=== PATIENT | male | born 1980 | race Hispanic/Latino ===

== ENCOUNTER 2016-06-21 19:43 | Emergency (ER) | payer SELFPAY ==
[~2016-06-21] VITALS: Ht 170.2 cm; Wt 100.0 kg
[2016-06-21 19:45] VITALS: BP 152/73; PULSE 100; RESP 18; O2SAT 100
[2016-06-21 20:43] VITALS: BP 146/77; PULSE 98; RESP 22; O2SAT 100
--- NOTE | 2016-06-21 21:16 | ED.REPORT ---
HPI-General Illness Date of Service Jun 21, 2016 ED Provider: Doug Thorpe MD A 35 year old male presents to the ED via after an adverse reaction to a drug. Patient states that one of his friends gave him "a vapor" at 1830 because he was feeling anxious. He is unsure what substance was given. Associated symptoms included chest pain, SOB and numbness and tingling in his extremities. Patient states that he felt as if he was "going to " and "blacked out" for a short period of time. He states that he has returned to his baseline. Patient denies any other medical complaints at this time. Nursing Notes Stated Complaint: AGITATION Chief Complaint: General Complaint Nursing Notes Reviewed: Yes Allergies: Coded Allergies: No Known Allergies (Unverified , 06/21/16) No Active Prescriptions or Reported Meds General Time Seen by MD: 20:50 Chief Complaint Other (Adverse reaction to drug) Hx Obtained From: Patient Arrived By: Ambulance Sudden in Onset?: Yes Onset Occurred: 1 - 4 hours ago (1829) Context of Onset: Other (Unknown drug use) Symptom Duration: Since onset Associated with: Reports: Chest pain, Difficulty breathing, Dizziness, Loss of consciousness ("blackout"), Nausea, Shortness of breath Pertinent Negative: Pt denies other symptoms Recent Healthcare: No recent doctor visit, No recent hospitalization Past Medical History Past Medical History None reported. Past Surgical History None reported. Smoking History Unknown if Ever Smoker Social History Alcohol Use: "Social" Drug Use: THC Other Social History: Local resident Ambulatory Status Independent Review of Systems Full Review of Systems Constitutional: Denies: Chills, Fever Respiratory: Reports: Shortness of breath Cardiovascular: Reports: Chest pain GI: Denies: Abdominal pain, Nausea, Vomiting Neurologic: Reports: Change LOC Complete sys rev & neg: except as marked. Physical Exam Vital Signs Vital Signs Date Time Temp Pulse Resp B/P Pulse Ox O2 Delivery O2 Flow Rate FiO2 06/21/16 21:30 98 16 146/77 100 Room Air 06/21/16 20:43 98 22 146/77 100 Room Air 06/21/16 19:45 36.8 100 18 152/73 100 Initial VS: Reviewed Head / Eyes: Atraumatic, Normocephalic, PERRL Neck: Supple, Non-tender, Full range of motion Extremities: Vascular intact, Neuro intact, No swelling, No tenderness Skin: Warm, Dry, No cyanosis Neurologic: Alert, Oriented, Nonfocal Psychiatric: Mood/affect normal, Behavior normal, Normal thought content General/Constitutional: Awake, Alert, No acute distress Respiratory / Chest: Atraumatic, Breath sounds NL, Breath sounds = bilat, No respiratory distress Cardiovascular: Heart rate NL, Regular rhythm, Heart sounds NL Re-Eval/Medical Decision Med Decision/Clinical Course 35-year-old male presenting after a bad reaction to vaporized marijuana. He reports he feels much better now like to go home. He reports he felt very anxious and had some chest pain that this is all resolved. He would not like any labs or EKG or any further workup. He feels at his baseline to go home without any further workup. Patient will be discharged home with return precautions. Time of Eval: 21:23 Patient Status: Condition improved Re-Evaluation/Progress Note: Patient reports his symptoms have resolved and he would like to be discharged. Counseled Regarding: Diagnosis, Need for follow-up, When/why to return to ED Discharge & Departure Primary Impression: Intoxication by drug Complication of substance-induced condition: uncomplicated Qualified Code: F19.920 - Other psychoactive substance use, unspecified with intoxication, uncomplicated Disposition: Home Discharge Condition All VS Reviewed: Yes Condition: Stable Additional Instructions: Thank you for trusting us with your care this evening. Your examination is reassuring that there is no dangerous cause for concern at this time. I recommend you abstain from drug use. Schedule a follow up appointment with your primary care physician in the next 2- 3 days for a recheck. Please return to the emergency department for any new or worsening conditions including chest pain, vomiting or difficulty breathing. Referrals: NOPCP (PCP) [facility] Scribe Attestation Portions of this note were transcribed by Aniceto Barrera. I, Dr. Thorpe personally performed the history, physical exam and medical decision-making; I reviewed and confirmed the accuracy of the information in the transcribed note. Signed by: Aura Schneider, 06/21/16 2300. Doug Thorpe MD Jun 21, 2016 21:16 ANICETO BARRERA Jun 21, 2016 21:25
[2016-06-21 21:30] VITALS: BP 146/77; PULSE 98; RESP 16; O2SAT 100
== END 2016-06-21 21:30 | disposition home or self-care (01) ==
LOC: SED 19:43
DX: F12.129 Cannabis abuse with intoxication, unspecified (principal); F41.9 Anxiety disorder, unspecified

== ENCOUNTER 2016-09-18 22:21 | Emergency (ER) | payer OTHER ==
[~2016-09-18] VITALS: Ht 172.7 cm; Wt 97.7 kg
[2016-09-18 22:26] VITALS: BP 146/89; PULSE 101; RESP 16; O2SAT 98
--- NOTE | 2016-09-18 22:59 | ED.REPORT ---
HPI-Chest Pain Under 40 Date of Service September 18, 2016 ED Provider: Earl Leon MD The pt is a healthy 35 y/o male presenting to the ED complaining of chest pain onset earlier today. He had just finished eating "a lot" of chicken and avocados , and was sitting on his couch when the pain began. He describes the pain as a pressure and also reports his hands sweating, heart beating fast, and a sensation of "fading". He has had similar episodes after his PCP put him on Citalopram. Denies chills, fevers, cough, lower extremity edema, or nausea. Nursing Notes Stated Complaint: CHEST PAIN Chief Complaint: Chest Pain Nursing Notes Reviewed: Yes Allergies: Coded Allergies: No Known Allergies (Unverified , 06/21/16) No Active Prescriptions or Reported Meds General Time Seen by MD: 22:59 Chief Complaint Chest pain Hx Obtained From: Patient Arrived By: Walk-in Sudden in Onset?: Yes Onset Occurred: 1 - 4 hours ago Recent Healthcare: No recent doctor visit, No recent hospitalization Similar Sx Previous: Yes Past Medical History Past Medical History Hx of chest pain Past Surgical History None reported. Smoking History Unknown if Ever Smoker Social History Alcohol Use: "Social" Drug Use: THC Other Social History: Local resident Ambulatory Status Independent Review of Systems Sensation of "fading" Constitutional: Denies: Chills, Fever Respiratory: Denies: Non-productive cough Cardiovascular: Reports: Chest pain, Denies: Edema GI: Denies: Nausea Skin: Reports Diaphoresis (Hands) Complete sys rev & neg: except as marked. Physical Exam Initial Vital Signs Vital Signs (First) Date Time Temp Pulse Resp B/P Pulse Ox O2 Delivery O2 Flow Rate FiO2 09/18/16 22:26 37.3 101 16 146/89 98 Room Air Initial VS: Reviewed General/Constitutional: Awake, Alert Behavior: Positive: Anxious Respiratory / Chest: Atraumatic, Breath sounds NL, Breath sounds = bilat, No respiratory distress, No rales, No rhonchi, No wheezing Cardiovascular: Regular rhythm, Heart sounds NL, No gallop, No murmurs, No rubs Heart Rate / Rhythm: Positive: Tachycardia Neck: Atraumatic, Supple, Full range of motion, No JVD, Thyroid NL Abdomen: Atraumatic, Soft, Non-tender Back: Atraumatic, Inspection NL, Full range of motion Lower Extremity / Pelvis / MS: Atraumatic, Full range of motion Skin: Color NL, Warm Diaphoretic Psychiatric: Affect NL, Mood NL Head / Eyes: Atraumatic, Normocephalic Interpretation & Diagnostics Lab Results Interpretation Result Diagram: 09/18/160 09/18/16 2340 Test 09/18/16 23:40 09/19/16 01:10 White Blood Count 10.5th/mm3 (3.8-10.1) Red Blood Count 4.77mil/mm3 (4.40-5.80) Hemoglobin 15.4g/dL (13.8-17.2) Hematocrit 43.4% (41.0-50.0) Mean Corpuscular Volume 91.0fL (81-100) Mean Corpuscular Hemoglobin 32.3pg (27.0-35.0) Mean Corpuscular Hemoglobin Concent 35.5% (32.0-37.0) Red Cell Distribution Width 12.1% (12.3-15.4) Platelet Count 258bil/L (150-400) Neutrophils (%) (Auto) 70.9% (40-74) Lymphocytes (%) (Auto) 19.8% (14-46) Monocytes (%) (Auto) 8.3% (4-12) Eosinophils (%) (Auto) 0.3% (0-5) Basophils (%) (Auto) 0.3% (0-3) Prothrombin Time 10.5sec (8.1-12.5) Prothromb Time International Ratio 0.98ratio Activated Partial Thromboplast Time 25.4sec (22.8-33.0) D-Dimer < 0.50mg/L FEU (<0.50) Sodium Level 138mEq/L (134-144) Potassium Level 4.3mEq/L (3.5-5.2) Chloride Level 97mEq/L (97-108) Carbon Dioxide Level 22mmol/L (18-29) Blood Urea Nitrogen 26mg/dL (6-20) Creatinine 0.89mg/dL (0.76-1.27) Estimat Glomerular Filtration Rate 105mL/min (>59) Glucose Level 112mg/dL (60-99) Calcium Level 8.9mg/dL (8.5-10.1) Magnesium Level 2.1mg/dL (1.6-2.6) Total Bilirubin 0.2mg/dL (0.0-1.2) Aspartate Amino Transf (AST/SGOT) 75U/L (0-50) Alanine Aminotransferase (ALT/SGPT) 164U/L (0-44) Alkaline Phosphatase 106U/L (25-150) Troponin T 0.010ug/L (0.0-0.011) Pro-B-Type Natriuretic Peptide 19.96pg/mL (0-86) Total Protein 8.1g/dL (6.4-8.4) Albumin 4.6g/dL (3.4-5.0) Thyroid Stimulating Hormone (TSH) 2.760uIU/mL (0.450-4.500) Free Thyroxine 1.40ng/dL (0.82-1.77) Hepatitis C Comment . ECG Interpretation ECG Interpretation: Rate [address] elev, probable normal early repol pattern Time: 23:27 Interpreted by: ED physician Re-Eval/Medical Decision Med Decision/Clinical Course 35-year-old presents with rapid palpitations and feeling faint, shortly after a large scale ingestion of barbecue. Description and rate of this dysrhythmia suggests PSVT more than sinus rhythm from anxiety. He will need Holter monitoring to evaluate further. Provided with metoprolol for the interim. D-dimer is negative, no indication of pulmonary embolus to explain his symptoms. He discharged in stable condition. Incidental note is made of mild elevations of his transaminases. Hepatitis screen sent for PCP use later Source of Hx: Old records Re-Evaluation/Progress : Time of Eval: 00:52 Re-Evaluation/Progress Note: Pt rechecked. Informed pt of plan for treatment. Pt understands and agrees with plan for treatment. F/U instructions and RTER warnings given. All questions addressed. Counseled Regarding: Diagnosis, Lab results, Need for follow-up, When/why to return to ED Discharge & Departure Shift Change Sign-Out Response to Therapy: Improved Primary Impression: Paroxysmal SVT (supraventricular tachycardia) Additional Impressions: Elevated liver function tests Right bundle branch block Disposition: Home Discharge Condition All VS Reviewed: Yes Condition: Stable Additional Instructions: I think it is possible and even likely that you had an episode of paroxysmal supraventricular tachycardia. This can be evaluated further with a Holter exam more patch test or other long- term cardiac recording. Contact your doctor to arrange this. You have a right bundle branch block. We do not know if this is chronic or new. It is often congenital and benign in younger patients. You have mild elevations of your liver function tests. Hepatitis studies have been ordered from the bloods drawn here, and will be available for your doctor in 3-4 days. If you need a local physician, you can be followed at residency clinic. Return for any immediate issues. Referrals: NOPCP (PCP) [facility] Scribe Attestation Portions of this note were transcribed by Suresh Sutherland. I, Dr. Leon personally performed the history, physical exam and medical decision-making; I reviewed and confirmed the accuracy of the information in the transcribed note. Signed by : Aura Orosco, 09/19/16 and 0031. copies to: [facility] Earl Leon MD September 18, 2016 22:59 Suresh Sutherland September 19, 2016 00:27
[2016-09-18 23:06] VITALS: BP 140/87; PULSE 108; RESP 16; O2SAT 96
[2016-09-18] MEDS ORDERED: 0.9% Sodium Chloride 1,000 ML IV ONE (23:14)
[2016-09-18 23:47] LABS: BASOPHILS % (AUTO) 0.3 % (0-3); EOSINOPHILS % (AUTO) 0.3 % (0-5); MONOCYTES % (AUTO) 8.3 % (4-12); Mean Corpuscular Hemoglobin 32.3 pg (27.0-35.0); NEUTROPHILS % (AUTO) 70.9 % (40-74); Platelet Count 258 bil/L (150-400)
[2016-09-19 00:15] LABS: D-Dimer < 0.50 mg/L FEU (<0.50); INR 0.98 ratio
[2016-09-19 00:24] VITALS: BP 123/74; PULSE 79; RESP 16; O2SAT 99
[2016-09-19 00:39] LABS: Magnesium 2.1 mg/dL (1.6-2.6); TROPONIN T 0.01 ug/L (0.0-0.011)
--- NOTE | 2016-09-19 07:54 | DRSVH ---
PROCEDURE: X-RAY CHEST, TWO VIEWS ([id number]) INDICATIONS: palpitations TECHNIQUE: 2 views of the chest were acquired. COMPARISON: None. FINDINGS: Surgical changes and devices: None. Lungs and pleura: No pleural effusions or pneumothorax. Lungs are clear. Mediastinum: Mediastinal contours are normal. Heart size is normal. Bones and chest wall: No suspicious bony abnormalities. Soft tissues appear unremarkable. IMPRESSION: No acute process. Dictated by: Raheem Fletcher M.D. on 09/19/2016 at 7:52 Approved by: Raheem Fletcher M.D. on 09/19/2016 at 7:52
[2016-09-20 07:09] LABS: Hepatitis A Antibody IgM Negative (Negative); Hepatitis B Core Antibody IgM Negative (Negative)
== END 2016-09-19 01:10 | disposition home or self-care (01) ==
LOC: SED 22:21
DX: I47.1 Supraventricular tachycardia (principal); I45.10 Unspecified right bundle-branch block; R79.89 Other specified abnormal findings of blood chemistry
CPT/HCPCS: 36415; 71020; 80053; 83735; 83880; 84439; 84443; 84484; 85025; 85378; 85610; 85730; 86705; 86709; 87340; 87341; 93005; 96360; 99285; G0472; J7030